=== PATIENT | female | born 1960 | race African-American/Black ===

== ENCOUNTER 2019-07-01 09:20 | Emergency (ER) | payer MEDICARE ==
[2019-07-01 10:05] LABS: ABSOLUTE EOSINOPHILS # (AUTO) 0.1 10^3/uL (0.0-0.6); ABSOLUTE LYMPHOCYTES (AUTO) 1.6 10^3/uL (0.5-4.7); ABSOLUTE MONOCYTES (AUTO) 0.9 10^3/uL (0.1-1.4); ABSOLUTE NEUT (AUTO) 6.9 10^3/uL (1.7-8.2); BASOPHILS % (AUTO) 0.4 % (0-2); EOSINOPHILS % (AUTO) 0.5 % (0-6); HEMATOCRIT 35.1 % (36.0-47.0); HEMOGLOBIN 11.6 g/dL (12.0-15.5); MEAN CORPUSCULAR HEMOGLOBIN 28.3 pg (27.0-33.4); MEAN CORPUSCULAR VOLUME 86 fl (80-97); MONOCYTES % (AUTO) 9.1 % (3-13); PLATELET COUNT 221 10^3/uL (150-450); RED CELL DISTRIBUTION WIDTH 17.1 % (11.5-14.0); TOTAL CELLS COUNTED % (AUTO) 100 %; WHITE BLOOD COUNT 9.4 10^3/uL (4.0-10.5)
[2019-07-01 10:11] LABS: APPEARANCE,URINE SLIGHTLY-CLOUDY; BILIRUBIN,URINE NEGATIVE (NEGATIVE); COLOR,URINE YELLOW; GLUCOSE, URINE NEGATIVE (NEGATIVE); KETONES,URINE TRACE mg/dL (NEGATIVE); LEUKOCYTE ESTERASE,URINE SMALL (NEGATIVE); NITRITE,URINE NEGATIVE (NEGATIVE); PROTEIN,URINE 30 mg/dL (NEGATIVE); URINE SPECIFIC GRAVITY 1.018; UROBILINOGEN,URINE NEGATIVE mg/dL (<2.0)
[2019-07-01 10:37] LABS: ALBUMIN 4.6 g/dL (3.5-5.0); ALKALINE PHOSPHATASE 111 U/L (38-126); ANION GAP 11 (5-19); ASPARTATE AMINO TRANSFERASE 37 U/L (14-36); BILIRUBIN,DIRECT 0.1 mg/dL (0.0-0.4); BILIRUBIN,TOTAL 0.7 mg/dL (0.2-1.3); BLOOD UREA NITROGEN 23 mg/dL (7-20); CALCIUM 10.6 mg/dL (8.4-10.2); CARBON DIOXIDE 27 mmol/L (22-30); CHLORIDE 101 mmol/L (98-107); GLUCOSE 193 mg/dL (75-110); POTASSIUM 4.2 mmol/L (3.6-5.0); TOTAL PROTEIN 8.4 g/dL (6.3-8.2)
[2019-07-01 10:38] LABS: URINE AMPHETAMINES SCREEN NEGATIVE; URINE BARBITURATES SCREEN NEGATIVE; URINE BENZODIAZEPINES SCREEN NEGATIVE; URINE COCAINE SCREEN NEGATIVE; URINE METHADONE SCREEN NEGATIVE; URINE PHENCYCLIDINE SCREEN NEGATIVE
[2019-07-01 10:43] LABS: ACETAMINOPHEN < 10 ug/mL (10-30); ALCOHOL < 10 mg/dL (NONE DETECTED); SALICYLATE < 1.0 mg/dL (2.0-20.0)
[2019-07-01 10:44] LABS: URINE MARIJUANA (THC) SCREEN UNCONFIRMED POSITIVE
--- NOTE | 2019-07-01 11:31 | ER Document Report ---
Doctor's Note Notes: 07/01/19 11:02 Was contacted by DARNELL regarding this Patient. Advised the Patient was previously at [facility] ED, refused to answer COVID-19 questions and began to make a scene. DARNELL was contacted and transported patient to [facility] at her request for voluntary admission. Upon arrival at the front door of [facility], the patient began stripping of her clothes, sat down on the ground, and refused to go inside. The staff from [facility] reportedly advised Jolie officers that if patient did not want to come inside they could not force her and apparently were not willing to IVC her even though they were familiar with the patient and she was naked, presenting with disorganized speech, delusions, and donte. I asked the officer to ask the patie nt what she wanted and when adriana did the patient stated "I want to go to the hospital, I have 3 children..." then the rest was disorganized and unintelligible. Patient was overheard screaming her answers and not being cooperative. She was cussing at the officers and refusing to answer any other questions. I advised the officers that given she was naked, manic, disorganized, sitting in the rain, and unwilling/unable to answer questions, I was placing her under IVC petition and she should return to the ED for ongoing evaluation. I met the officers at the ED entrance where the patient remained handcuffed in the backseat of the vehicle. The patient was uncooperative with the officers but was cooperative with this clinician. She would only answer COVID-19 screening questions for me and did allow for her temperature to be taken by the nurse. She continued to be cooperative with myself and medical personnel, allowing for triage, labs, and EKG procedures to continue. Patient is very disorganized and perseverative on contacting her physicians in [place] but is not able to advise for what purpose. She is not able to advise what medications she is currently taking. Mood continues to be very labile and erratic. She remains grandiose, demanding at times, unpredictable, and is felt that without care, supervision and treatment she would continue to be a harm to herself and others. Patient is placed on IVC-Petition/24 hour hold with medication recommendations from the consulting forthcoming.
--- NOTE | 2019-07-01 11:48 | ER Document Report ---
ED General - General Chief Complaint: Psych Problem Stated Complaint: PSYCH EVAL Time Seen by Provider: 07/01/19 10:16 Mode of Arrival: Ambulatory Information source: Patient - HPI Notes: Patient was brought over by police. Patient apparently was here in the emergency permit earlier this morning was caused a disturbance and police were called. Police then took patient to the [facility] outpatient center. Patient refused to go inside the center. The police then called Dr. Ash. Dr. Ash asked for the patient be brought back to the emergency department for evaluation. Humberto bolivar states that she is concerned because she has had some swelling and has had some trouble walking. Patient denies any suicidal or homicidal ideation. Patient denies any problems with auditory or visual hallucinations. Apparently in old records per Dr. Ash, patient does have a history of some type of schizophrenia. Patient is disorganized and is not a good historian. Patient also states is been having some trouble with anxiety. Nothing known makes this better or worse. It appears to be intermittent. There is no known radiation of it. It appears to be moderate to severe. - Related Data Home Medications: Metformin. Duloxetine. Atorvastatin. Citalopram. Trazodone. Lisinopril Past Medical History - General Information source: Patient - Social History Smoking Status: Never Smoker - Per patient Frequency of alcohol use: None Drug Abuse: None Family History: Reviewed & Not Pertinent Patient has homicidal ideation: No - Past Medical History Cardiac Medical History: Reports: Hx Hypertension Endocrine Medical History: Reports: Hx Diabetes Mellitus Type 2 Psychiatric Medical History: Reports: Hx Depression Review of Systems - Review of Systems -: Yes ROS unobtainable due to patient's medical condition - Patient has obvious disorganized thought processes - cannot contribute ROS Physical Exam - Vital signs Vitals: Temp Pulse Resp BP Pulse Ox 98.7 F 100 16 129/79 H 99 07/01/19 10:17 07/01/19 10:17 07/01/19 10:17 07/01/19 10:17 07/01/19 10:17 Interpretation: Normal - General General appearance: Appears well, Alert - HEENT Head: Normocephalic, Atraumatic Eyes: Normal Pupils: PERRL - Respiratory Respiratory status: No respiratory distress Chest status: Nontender Breath sounds: Normal Chest palpation: Normal - Cardiovascular Rhythm: Regular Heart sounds: Normal auscultation Murmur: No - Abdominal Inspection: Normal Distension: No distension Bowel sounds: Normal Tenderness: Nontender Organomegaly: No organomegaly - Back Back: Normal, Nontender - Extremities General upper extremity: Normal inspection, Nontender, Normal color, Normal ROM, Normal temperature General lower extremity: Normal inspection, Nontender, Normal color, Normal ROM, Normal temperature, Normal weight bearing. No: Kim's sign - Neurological Cognition: Confused Orientation: Disoriented to time Ladan Coma Scale Eye Opening: Spontaneous Ladan Coma Scale Verbal: Confused Thurman Coma Scale Motor: Obeys Commands Thurman Coma Scale Total: 14 Speech: Normal Motor strength normal: LUE, RUE, LLE, RLE Sensory: Normal - Psychological Associated symptoms: Circumferential speech, Confused, Flight of ideas - Skin Skin Temperature: Warm Skin Moisture: Dry Skin Color: Normal Course - Re-evaluation Re-evalutation: 07/01/19 20:00 At this time patient has been seen by psychiatry. She is currently awaiting psychiatry placement. Patient has some minor laboratory abnormalities such as elevated LFTs and some minimally elevated creatinine. Initially am going to try and treat the creatinine as dehydration and push p.o. fluids. I will recheck labs in the morning. Will consider starting the IV if labs are worsening. - Vital Signs Vital signs: Temp Pulse Resp BP Pulse Ox 98.0 F 108 H 16 168/76 H 100 07/01/19 12:56 07/01/19 12:56 07/01/19 12:56 07/01/19 12:56 07/01/19 12:56 - Laboratory Result Diagrams: 07/01/19 09:34 07/01/19 09:34 Laboratory results interpreted by me: 07/01/19 07/01/19 07/01/19 09:34 09:34 09:55 Hgb 11.6 L Hct 35.1 L RDW 17.1 H BUN 23 H Creatinine 1.57 H Est GFR ( Amer) 41 L Est GFR (MDRD) Non-Af 33 L Glucose 193 H Calcium 10.6 H AST 37 H Total Protein 8.4 H Urine Protein 30 H Urine Ketones TRACE H Urine Blood SMALL H Ur Leukocyte Esterase SMALL H Salicylates < 1.0 L Acetaminophen < 10 L - Diagnostic Test Radiology reviewed: Image reviewed, Reports reviewed Discharge - Discharge Clinical Impression: Schizophrenia Qualifiers: Schizophrenia type: other Qualified Code(s): F20.89 - Other schizophrenia; F20.8 - Other schizophrenia Condition: Serious Disposition: PSYCH HOSP/UNIT
[2019-07-01] MEDS ORDERED: HALOPERIDOL 5 MG TABLET PO PRN (12:14)
[2019-07-01] MEDS ORDERED: BENZTROPINE MESYLATE 1 MG TABLET PO SCH (12:15)
--- NOTE | 2019-07-01 12:21 | RADIOLOGY REPORT (SQ) ---
EXAM DESCRIPTION: CT HEAD WITHOUT IMAGES COMPLETED DATE/TIME: 07/01/2019 11:50 am REASON FOR STUDY: ams/legs weak COMPARISON: None. TECHNIQUE: Axial images acquired through the brain without intravenous contrast. Images reviewed wi th bone, brain and subdural windows. Images stored on PACS. All CT scanners at this facility use dose modulation, iterative reconstruction, and/or weight based d osing when appropriate to reduce radiation dose to as low as reasonably achievable (ALARA). [facility]: Dose Right [facility]: CareDose [facility]: Dose Right [facility]: Teradose 4D [facility]: HealthLinkNow RADIATION DOSE: CT Rad equipment meets quality standard of care and radiation dose reduction techniq ues were employed. CTDIvol: 53.2 mGy. DLP: 1044 mGy-cm. LIMITATIONS: None. FINDINGS: There is no acute intracranial hemorrhage, vascular territorial infarct, extra-axial fluid collection or mass effect. The murray-white matter differentiation is preserved. There is no effacem ent of the cerebral sulci or basal subarachnoid cisterns. The caliber the ventricles is concordant w ith the degree of sulcation. The globes are aphakic. The orbits are intact. The paranasal sinuses are clear. There is no fractu re of the calvarium. IMPRESSION: No acute intracranial abnormality. EVIDENCE OF ACUTE STROKE: NO. COMMENT: Quality ID # [id number]: Final reports with documentation of one or more dose reduction techniques (e.g., Automated exposure control, adjustment of the mA and/or kV according to patient size, use of iterative reconstruction technique) TECHNICAL DOCUMENTATION: JOB ID: [id number] 2010 [id number]- All Rights Reserved Reading location - IP/workstation name: [email or web address]
--- NOTE | 2019-07-01 12:58 | EKG REPORT ---
SEVERITY:- BORDERLINE ECG - SINUS RHYTHM BORDERLINE INFERIOR Q WAVES : Confirmed by: Shay Vernon MD 01-Jul-2019 12:57:46
[2019-07-01] MEDS ORDERED: CHLORPROMAZINE HCL 50 MG TABLET PO PRN (13:59)
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
[2019-07-01] MEDS ORDERED: METFORMIN HCL 500 MG TABLET PO ONE (20:11)
[2019-07-01] MEDS ORDERED: HYDROCHLOROTHIAZIDE 12.5 MG TABLET PO ONE (20:12)
[2019-07-01] MEDS ORDERED: LISINOPRIL 10 MG TABLET PO ONE (20:12)
[2019-07-01] MEDS ORDERED: LORAZEPAM 1 MG TABLET PO PRN (20:16)
[2019-07-02] MEDS ORDERED: CHLORPROMAZINE HCL 50 MG TABLET PO ONE (00:42)
[2019-07-02] MEDS ORDERED: HYDROXYZINE HCL 10 MG TABLET PO ONE (01:59)
[2019-07-02] MEDS ORDERED: FUROSEMIDE 20 MG TABLET PO ONE (01:59)
[2019-07-02 06:59] LABS: ABSOLUTE EOSINOPHILS # (AUTO) 0.2 10^3/uL (0.0-0.6); ABSOLUTE LYMPHOCYTES (AUTO) 2.5 10^3/uL (0.5-4.7); ABSOLUTE MONOCYTES (AUTO) 0.9 10^3/uL (0.1-1.4); ABSOLUTE NEUT (AUTO) 5.2 10^3/uL (1.7-8.2); BASOPHILS % (AUTO) 0.4 % (0-2); EOSINOPHILS % (AUTO) 1.7 % (0-6); HEMATOCRIT 28.6 % (36.0-47.0); HEMOGLOBIN 9.6 g/dL (12.0-15.5); LYMPHOCYTES % (AUTO) 28.9 % (13-45); MEAN CORPUSCULAR HEMOGLOBIN 28.8 pg (27.0-33.4); MEAN CORPUSCULAR HGB CONC 33.5 g/dL (32.0-36.0); MEAN CORPUSCULAR VOLUME 86 fl (80-97); MONOCYTES % (AUTO) 10.1 % (3-13); PLATELET COUNT 189 10^3/uL (150-450); RED BLOOD COUNT 3.32 10^6/uL (3.72-5.28); RED CELL DISTRIBUTION WIDTH 16.8 % (11.5-14.0); SEGMENTED NEUTROPHILS % (AUTO) 58.9 % (42-78); TOTAL CELLS COUNTED % (AUTO) 100 %; WHITE BLOOD COUNT 8.8 10^3/uL (4.0-10.5)
[2019-07-02 07:20] LABS: ALBUMIN 3.2 g/dL (3.5-5.0); ALKALINE PHOSPHATASE 78 U/L (38-126); ANION GAP 5 (5-19); ASPARTATE AMINO TRANSFERASE 28 U/L (14-36); BILIRUBIN,TOTAL 0.5 mg/dL (0.2-1.3); BLOOD UREA NITROGEN 19 mg/dL (7-20); CALCIUM 9.1 mg/dL (8.4-10.2); CARBON DIOXIDE 30 mmol/L (22-30); CHLORIDE 101 mmol/L (98-107); GLUCOSE 124 mg/dL (75-110); POTASSIUM 3.8 mmol/L (3.6-5.0); TOTAL PROTEIN 5.8 g/dL (6.3-8.2)
--- NOTE | 2019-07-02 08:50 | ER Document Report ---
Doctor's Note Notes: 07/02/19 08:48 Patient reexamined this morning. Patient's vital signs are stable. She is pleasant and cooperative. She is currently eating breakfast. Patient's laboratories were repeated this morning and reviewed. She still has some mildly elevated nonspecific LFTs. She also has an improving creatinine as we push flu ids yesterday. Patient has a hemoglobin that is lower than yesterday. I performed a rectal exam with Shavon the nurse as my television production technician. She was heme- negative on this exam. She states she has been hospitalized before with rectal bleeding. At this time she does not appear to have any active bleeding and I think the hemoglobin drop may be due to her fluid status being increased. I believe there may be some hemodilution. However I think upon discharge it would benefit the patient to be on an iron pill and to follow-up with gastroenterology. She states she has not had a menstrual cycle in approximate 25 years. No other obvious source of bleeding could be found. However with stable vital signs and a heme-negative rectal exam it appears most prudent for this to be pursued as an outpatient.
[2019-07-02] MEDS ORDERED: LISINOPRIL 10 MG TABLET PO SCH (10:00)
[2019-07-02] MEDS ORDERED: HYDROCHLOROTHIAZIDE 12.5 MG TABLET PO SCH (10:00)
[2019-07-02] MEDS ORDERED: METFORMIN HCL 500 MG TABLET PO SCH (10:00)
[2019-07-02 15:46] VITALS: BP 152/62
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
== END 2019-07-02 15:45 | disposition home or self-care (01) ==
LOC: ER 09:20
DX: F20.89 Other schizophrenia (principal); F39 Unspecified mood [affective] disorder; D64.9 Anemia, unspecified; I10 Essential (primary) hypertension; E11.9 Type 2 diabetes mellitus without complications
CPT/HCPCS: 93005; 99285; 36415; 80307 ×4; 84443; 85025; 82270; 80053; 81001; 70450; 93010; A9270 ×7; J3490